=== PATIENT | female | born 1985 | race Caucasian/White ===

== ENCOUNTER 2016-12-26 15:02 | Emergency (ER) | payer OTHER ==
[2016-12-26 16:06] VITALS: BP 111/74
== END 2016-12-26 16:30 | disposition home or self-care (01) ==
LOC: ED 15:02
DX: S39.012A Strain of muscle, fascia and tendon of lower back, initial encounter (principal); W18.09XA Striking against other object with subsequent fall, initial encounter; Y93.89 Activity, other specified; Y92.89 Other specified places as the place of occurrence of the external cause; Y99.8 Other external cause status; E11.9 Type 2 diabetes mellitus without complications; F41.9 Anxiety disorder, unspecified
CPT/HCPCS: J1885

== ENCOUNTER 2017-08-04 10:06 | Emergency (ER) | payer OTHER ==
[~2017-08-04] VITALS: Ht 167.6 cm; Wt 83.9 kg
[2017-08-04 10:18] VITALS: BP 102/75
[2017-08-04 11:33] LABS: UA SPECIFIC GRAVITY 1.025 (1.005-1.035); microscopic required? YES; urine erythrocyte 3+ (NEGATIVE)
== END 2017-08-04 10:52 | disposition home or self-care (01) ==
LOC: ED 10:06
PROVIDERS: Emergency Medicine
DX: N39.0 Urinary tract infection, site not specified (principal); E11.9 Type 2 diabetes mellitus without complications; F41.9 Anxiety disorder, unspecified

== ENCOUNTER 2018-09-09 10:25 | Emergency (ER) | payer OTHER ==
[~2018-09-09] VITALS: Ht 167.6 cm; Wt 88.5 kg
[2018-09-09 10:31] VITALS: Ht 167.6 cm; Wt 88.5 kg
[2018-09-09 11:13] LABS: microscopic required? YES; urine erythrocyte TRACE (NEGATIVE)
[2018-09-09 12:29] VITALS: BP 116/60
== END 2018-09-09 12:29 | disposition home or self-care (01) ==
LOC: ED 10:25
PROVIDERS: Emergency Medicine
DX: N39.0 Urinary tract infection, site not specified (principal); J06.9 Acute upper respiratory infection, unspecified; N76.0 Acute vaginitis; F41.9 Anxiety disorder, unspecified; E11.9 Type 2 diabetes mellitus without complications; Z98.890 Other specified postprocedural states
CPT/HCPCS: 87491; 87591; J0696

== ENCOUNTER 2019-06-22 12:10 | Emergency (ER) | payer OTHER ==
[~2019-06-22] VITALS: Ht 167.6 cm; Wt 90.8 kg
[2019-06-22 12:51] VITALS: BP 130/76; Ht 167.6 cm; Wt 90.8 kg
== END 2019-06-22 14:15 | disposition left against medical advice (07) ==
LOC: ED 12:10
DX: Z53.21 Procedure and treatment not carried out due to patient leaving prior to being seen by health care provider (principal)

== ENCOUNTER 2019-08-23 08:21 | Emergency (ER) | payer OTHER ==
[~2019-08-23] VITALS: Ht 167.6 cm; Wt 91.6 kg
[2019-08-23 08:45] VITALS: Ht 167.6 cm; Wt 91.6 kg
[2019-08-23 10:08] VITALS: BP 111/83
== END 2019-08-23 10:08 | disposition home or self-care (01) ==
LOC: ED 08:21
DX: N39.0 Urinary tract infection, site not specified (principal); E11.9 Type 2 diabetes mellitus without complications; F41.9 Anxiety disorder, unspecified; Z98.890 Other specified postprocedural states
CPT/HCPCS: 82962

== ENCOUNTER 2019-11-01 20:03 | Emergency (ER) | payer OTHER ==
[~2019-11-01] VITALS: Ht 170.2 cm; Wt 88.0 kg
[2019-11-01 20:18] VITALS: BP 125/57; Ht 170.2 cm; Wt 88.0 kg
== END 2019-11-01 22:02 | disposition home or self-care (01) ==
LOC: ED 20:03
DX: S93.401A Sprain of unspecified ligament of right ankle, initial encounter (principal); E11.9 Type 2 diabetes mellitus without complications; Z98.890 Other specified postprocedural states; W01.0XXA Fall on same level from slipping, tripping and stumbling without subsequent striking against object, initial encounter; Y93.89 Activity, other specified; Y92.89 Other specified places as the place of occurrence of the external cause; Y99.8 Other external cause status

== ENCOUNTER 2019-11-04 17:12 | Emergency (ER) | payer OTHER ==
[~2019-11-04] VITALS: Ht 167.6 cm; Wt 64.9 kg
[2019-11-04 17:36] VITALS: Ht 167.6 cm; Wt 64.9 kg
[2019-11-04 18:09] VITALS: BP 145/71
== END 2019-11-04 18:09 | disposition home or self-care (01) ==
LOC: ED 17:12
DX: S93.601A Unspecified sprain of right foot, initial encounter (principal); W01.0XXA Fall on same level from slipping, tripping and stumbling without subsequent striking against object, initial encounter; Y93.89 Activity, other specified; Y92.89 Other specified places as the place of occurrence of the external cause; Y99.8 Other external cause status
CPT/HCPCS: J1885

== ENCOUNTER 2020-06-26 14:37 | Emergency (ER) | payer OTHER ==
[~2020-06-26] VITALS: Ht 167.6 cm; Wt 81.2 kg
[2020-06-26 14:50] VITALS: BP 135/64; Ht 167.6 cm; Wt 81.2 kg
== END 2020-06-26 16:52 | disposition home or self-care (01) ==
LOC: ED 14:37
DX: L03.011 Cellulitis of right finger (principal); E11.9 Type 2 diabetes mellitus without complications; Z98.890 Other specified postprocedural states; Z87.19 Personal history of other diseases of the digestive system
CPT/HCPCS: J0696